=== PATIENT | male | born 1995 | race Caucasian/White ===

== ENCOUNTER 2020-08-22 14:31 | Emergency (ER) | payer BC ==
[~2020-08-22] VITALS: Ht 172.7 cm; Wt 80.3 kg
[2020-08-22 14:35] VITALS: BP_SYST 146
[2020-08-22] MEDS ORDERED: NAPR-1172 PO (15:08)
[2020-08-22] MEDS ORDERED: DOXY100C PO (15:08)
[2020-08-22] MEDS ORDERED: ERYEYE EACH EYE (15:11)
[2020-08-22 15:30] VITALS: BP_SYST 146
== END 2020-08-22 15:30 | disposition home or self-care (01) ==
LOC: SED 14:31
DX: H10.9 Unspecified conjunctivitis (principal); N34.2 Other urethritis; M02.38 Reiter's disease, vertebrae; Z79.899 Other long term (current) drug therapy
CPT/HCPCS: 99283

== ENCOUNTER 2020-11-21 21:33 | Emergency (ER) | payer BC ==
[~2020-11-21] VITALS: Ht 172.7 cm; Wt 77.1 kg
[~2020-11-21 21:33] MED LIST: DOXY100C PO; ERYEYE EACH EYE; NAPR-1172 PO
[2020-11-21 21:39] VITALS: BP_SYST 135
[2020-11-21 22:24] LABS: BASOPHILS % (AUTO) 0.6 % (0.0-2.0); EOSINOPHILS # (AUTO) 0.1 K/uL (0.0-0.4); EOSINOPHILS % (AUTO) 2.6 % (0.0-4.0); HEMATOCRIT 46.3 % (36-54); LYMPHOCYTES # (AUTO) 1.9 K/uL (1.0-5.5); LYMPHOCYTES % (AUTO) 33.6 % (20.5-51.5); MEAN CORPUSCULAR HEMOGLOBIN 33 pg (27-31); MEAN CORPUSCULAR HGB CONC 35 % (32-36); MEAN CORPUSCULAR VOLUME 94 fL (79.0-98.0); MONOCYTES # (AUTO) 0.7 K/uL (0.0-1.0); MONOCYTES % (AUTO) 12.5 % (1.7-9.3); NEUTROPHILS # (AUTO) 2.8 K/uL (1.8-7.7); NEUTROPHILS % (AUTO) 50.7 % (40.0-70.0); PLATELET COUNT (AUTO) 209 K/uL (130-430); RED CELL DISTRIBUTION WIDTH 13.7 % (9.0-15.0); WHITE BLOOD COUNT (AUTO) 5.6 K/uL (4.8-10.8)
[2020-11-21 22:29] LABS: CALCIUM 8.4 mg/dL (8.4-11.0); CREATININE 1.01 mg/dL (0.55-1.30); POTASSIUM 3.6 mmol/L (3.5-5.1); PROTHROMBIN TIME 9.9 SECS (9.5-12.5)
[2020-11-21 22:34] LABS: ALBUMIN 4.2 g/dL (3.4-4.8); TOTAL BILIRUBIN 0.7 mg/dL (0.0-1.0)
[2020-11-21] MEDS ORDERED: NACL 0.9% 1,000 ML IV ONE (22:45)
[2020-11-21] MEDS ORDERED: ACETAMINOPHEN 500 MG TABLET PO ONE (23:15)
[2020-11-21] MEDS ORDERED: PANTOPRAZOLE SODIUM 40 MG TAB PO ONE (23:15)
[2020-11-22 00:17] VITALS: BP_SYST 123
== END 2020-11-22 00:17 | disposition home or self-care (01) ==
LOC: SED 21:33
DX: R07.81 Pleurodynia (principal); R74.8 Abnormal levels of other serum enzymes; R11.10 Vomiting, unspecified; Z79.899 Other long term (current) drug therapy
CPT/HCPCS: 36415; 71045; 80053; 84484; 85025; 85379; 85610; 85730; 93005; 96360; 99285; J7030